=== PATIENT | male | born 1965 | race Caucasian/White ===

== ENCOUNTER 2018-05-12 05:28 | Emergency (ER) | payer OTHER ==
[~2018-05-12] VITALS: Ht 167.6 cm; Wt 84.7 kg
[2018-05-12 05:35] VITALS: BP 172/99; PULSE 88; RESP 16; TEMP 98.5; O2SAT 98
--- NOTE | 2018-05-12 05:43 | PD ---
HPI Chief Complaint: Musculoskeletal Complaint Time Seen by Provider: 05:40 Travel History International Travel<30 days: No Contact w/Intl Traveler<30days: No Traveled to known affect area: No History of Present Illness HPI 52-year-old male presents to the emergency department for complaint of right hand pain. Patient states on Saturday he had a non-syncopal trip and fall over a sprinkler head in his yard landing on his right hand with injury. Patient states that since then he has had increasing pain and swelling with bruising to the right hand. Patient has decreased range of motion of digit secondary to hand pain. Patient also now notes some wrist pain. Denies any forearm pain elbow pain upper arm pain or shoulder pain. No other reported injury. Patient has hypertension. Patient takes no blood thinning agent. Patient rates pain as moderate to severe, 6-07/11. Has taken Aleve for pain. PFSH Past Medical History Narrative Medical Hypertension; nursing notes reviewed Social History Tobacco Use: No (previous smoker) Allergies-Medications (Allergen,Severity, Reaction): Coded Allergies: No Known Allergies (Unverified , 05/12/18) Reported Meds & Prescriptions Reported Meds & Active Scripts Active Percocet (Oxycodone-Acetaminophen) 5-325 mg Tab 1 Tab PO Q6H PRN Reported Aleve (Naproxen Sodium) 220 Mg Capsule Lisinopril-Hctz 10-12.5 Mg Tab 1 Tab PO DAILY Review of Systems Except as stated in HPI: all other systems reviewed are Neg Musculoskeletal: Positive: Edema, Pain Physical Exam Narrative GENERAL: Well-developed well-nourished male no acute distress no respiratory distress GCS 15 SKIN: Warm and dry. HEAD: Normocephalic. MUSCULOSKELETAL: No cyanosis, or edema. Focused exam right hand soft tissue swelling palmar bruising intact capillary refill less than 2 seconds sensory exam intact decreased range of motion secondary soft tissue swelling and bruising no deformity noted. BACK: Nontender without obvious deformity. No CVA tenderness. Data Data Last Documented VS Vital Signs Date Time Temp Pulse Resp B/P (MAP) Pulse Ox O2 Delivery O2 Flow Rate FiO2 05/12/18 05:35 98.5 88 16 172/99 (123) 98 Orders Orders Hand, Complete ([id number]) (05/12/18 ) Splint Or Brace Apply/Monitor (05/12/18 06:16) Ed Discharge Order (05/12/18 06:18) [facility] Medical Decision Making Medical Screen Exam Complete: Yes Emergency Medical Condition: Yes Medical Record Reviewed: Yes Interpretation(s) right hand xr: Last Impressions Hand X-Ray 05/12/18 0000 Signed Impressions: CONCLUSION: Sequela of old trauma adjacent to ulnar styloid. No acute fracture identified. Differential Diagnosis Fracture subluxation dislocation sprain strain contusion Narrative Course Imaging of the right hand ordered for evaluation of probable fracture ice pack splint applied; RX for percocet provided to the patient Patient with no obvious displacement or acute fracture reading per radiologist reveals evidence of prior sequelae of injury no acute fracture; volar splint applied; patient stable for outpatient management Diagnosis Primary Impression: Sprain of wrist, right Qualified Codes: S63.501A - Unspecified sprain of right wrist, initial encounter Referrals: Primary Care Physician 2 days Patient Instructions: General Instructions Additional Instructions: Elevate the right hand Wear splint for support --recommend PCP follow up 2-3 days to reassess need for ongoing splinting, transitiion to preformed velcro wrist splint Continue nonsteroidal anti-inflammatory medication such as ibuprofen/Advil/ Motrin 800 mg as often as every 8 hours for pain associated with inflammation or Aleve 1 every 12 hours as per package direction Follow-up with your primary care provider or as needed orthopedist Return to the emergency department for any concerns or change in condition Take pain medication as prescribed as needed for pain greater than 5/10 in intensity Med/Other Pt SpecificInfo: Prescription(s) given Scripts Oxycodone-Acetaminophen (Percocet) 5-325 mg Tab 1 TAB PO Q6H Y for PAIN, #7 TAB 0 Refills Prov: Emily Stein MD 05/12/18 Disposition: 01 DISCHARGE HOME Condition: Stable Emily Stein MD May 12, 2018 05:43
[2018-05-12] MEDS ORDERED: LISI10TA PO (05:47)
[2018-05-12] MEDS ORDERED: NAPR220C22 (05:48)
[2018-05-12] MEDS ORDERED: PERC5TAB12 PO (06:08)
--- NOTE | 2018-05-12 06:12 | RADRPT ---
EXAM DATE: 05/12/2018 5:58 AM EDT AGE/SEX: 52 years / Male INDICATIONS: Patient tripped over a sprinkler and fell catching himself with his right hand. Compla ins of right wrist pain. CLINICAL DATA: This is the patient's initial encounter. Patient reports that signs and symptoms have been present for 2 days and indicates a pain score of 7/10. MEDICAL/SURGICAL HISTORY: None. None. COMPARISON: No prior exams available for comparison. FINDINGS: 3 views right hand. Small corticated ossicles adjacent to the ulnar styloid indicating sequela of old trauma. No acute fracture identified. Bone alignment within normal limits. No evidence of joint narr owing. CONCLUSION: Sequela of old trauma adjacent to ulnar styloid. No acute fracture identified. Electronically signed by: Christoph Bullock MD 05/12/2018 6:10 AM EDT
== END 2018-05-12 06:34 | disposition home or self-care (01) ==
LOC: PHED 05:28
DX: S63.501A Unspecified sprain of right wrist, initial encounter (principal); I10 Essential (primary) hypertension; Z79.899 Other long term (current) drug therapy; W01.0XXA Fall on same level from slipping, tripping and stumbling without subsequent striking against object, initial encounter
CPT/HCPCS: 73130; 99283; L3908